=== PATIENT | female | born 1985 | race Caucasian/White ===

== ENCOUNTER 2021-08-06 11:28 | Emergency (ER) | payer OTHER, SELFPAY ==
[2021-08-06 11:36] VITALS: BP 131/89; PULSE 95; RESP 12; TEMP 36.6; O2SAT 100
--- NOTE | 2021-08-06 12:12 | ED.URI ---
HPI - URI/Sore Throat General Chief Complaint: Upper Respiratory Infection Stated Complaint: Sore throat, cough Time Seen by Provider: 08/06/21 12:12 Source: patient and RN notes reviewed Mode of arrival: ambulatory Limitations: no limitations History of Present Illness HPI Narrative: 36-year-old female with history of POTS presents with concern for sore throat, headache, sinus pressure, body aches and chills. Reports she is taken ibuprofen with no relief. She reports she is been vaccinated for Covid. She denies any known Covid exposure. Reports occasional cough, denies shortness of breath. MD elicited complaint: sore throat, nasal congestion and other Related Data Home Medications Medication Instructions Recorded Confirmed metoprolol succinate PO 08/06/21 Allergies Allergy/AdvReac Type Severity Reaction Status Date / Time No Known Allergies Allergy Verified 08/06/21 11:36 Review of Systems Review of Systems: CONSTITUTIONAL: Reported malaise, chills. Sweats, or fever. EYES: Denies visual changes, redness, or discharge. ENT: Reports rhinorrhea, congestion, sinus pain, and sore throat. CARDIOVASCULAR: Denies chest pain, palpitations, or edema. RESPIRATORY: Reports cough. Denies dyspnea. GASTROINTESTINAL: Denies abdominal pain, nausea, vomiting, diarrhea SKIN: Denies rash or itching. MUSCULOSKELETAL: Denies myalgia. NEUROLOGIC: Reports headache. All systems reviewed & are unremarkable except as noted in HPI and below PMFSH Family History Family History (Updated 09/12/16 @ 09:40 by DOCTOR UNKNOWN) Other Diabetes mellitus Family history of arthritis Family history of cardiovascular disease Family history of malignant neoplasm of ovary Family history of malignant neoplasm of thyroid Family history of mental disorder Family history of migraine headaches Family history of thyroid disease Hypertension Social History Social History Smoking status: Never smoker Alcohol intake: current Comments At time of signature, agree with nursing past medical, surgical, social and family history. There is no relevant family history pertinent to the presenting complaint Exam Narrative: GENERAL: Well-appearing, well-nourished, and in no acute distress. HEAD: Normocephalic EYES: PERRLA, conjunctivae clear ENT: Nares clear, clear discharge. Mucous membranes moist. TM pearly blevins with sharp light reflex bilaterally; no tragal tenderness. Oropharynx not erythematous without lesions. Tonsils not enlarged and without exudate, no drooling, no hoarseness, no trismus, uvula midline. NECK: Supple. No lymphadenopathy CHEST: Clear to auscultation, breath sounds equal. No wheezing, rhonchi, rales, or stridor. No respiratory distress, speaks in full sentences. HEART: Regular rate and rhythm. No murmur heard. SKIN: Warm, dry, no rash. NEURO: Alert and oriented x3. PSYCH: Normal mood and affect Course Course Emergency Course: Patient is aware of diagnosis, understands and agrees to treatment plan. Anticipatory guidance given. Patient agrees to follow-up as directed and is aware of reasons to seek care at the emergency department. Portions of this record may have been created with voice recognition software Level of Care: Express Care Visit Vital Signs Vital signs: Vital Signs Temperature 97.9 F 08/06/21 11:36 Pulse Rate 95 08/06/21 11:36 Respiratory Rate 12 08/06/21 11:36 Blood Pressure 131/89 08/06/21 11:36 Pulse Oximetry 100 08/06/21 11:36 Temperature 97.9 F 08/06/21 11:36 Pulse Rate 95 08/06/21 11:36 Respiratory Rate 12 08/06/21 11:36 Blood Pressure 131/89 08/06/21 11:36 Pulse Oximetry 100 08/06/21 11:36 Reviewed. MDM - URI/Sore Throat MDM Narrative Medical decision making narrative: Differential diagnosis considered: Mandujano virus, strep pharyngitis, allergic rhinitis, upper respiratory tract infection, sinusitis, rhinosinusitis, nasopharyngitis. viral pharyngitis, otit
== END 2021-08-06 12:35 | disposition home or self-care (01) ==
PROVIDERS: Emergency Provider Nurse Practitioner
DX: U07.1 COVID-19 (principal)
CPT/HCPCS: 87081; 87426; 87880; 99203; C9803; G0463

== ENCOUNTER → 2021-12-06 15:51 | Outpatient (CLI) | payer OTHER, SELFPAY ==
--- NOTE | ~2021-12-06 | XR_ITS ---
XR hand LT 2V DATE: 12/06/2021 16:23 INDICATION: Joint pain. Arthralgia. TECHNIQUE: AP and lateral views COMPARISON: None FINDINGS: No fracture, dislocation, periosteal reaction or bone destruction, erosive change or chondr ocalcinosis. IMPRESSION: No significant abnormality Reviewed, dictated and finalized at location A. IMPRESSION: No significant abnormality
--- NOTE | ~2021-12-06 | XR_ITS ---
XR foot RT 2V DATE: 12/06/2021 16:23 INDICATION: Arthralgia. Right foot pain. TECHNIQUE: AP and lateral views COMPARISON: None FINDINGS: No fracture or dislocation, periosteal reaction or bone destruction, erosive change or calc aneal enthesopathy. IMPRESSION: Negative Reviewed, dictated and finalized at location A. IMPRESSION: Negative
--- NOTE | ~2021-12-06 | XR_ITS ---
XR foot LT 2V DATE: 12/06/2021 16:23 INDICATION: Left foot pain. Arthralgia. TECHNIQUE: AP and lateral views COMPARISON: None FINDINGS: No fracture or dislocation, periosteal reaction or bone destruction, erosive change. No yuri caneal enthesopathy. IMPRESSION: No significant abnormality Reviewed, dictated and finalized at location A. IMPRESSION: No significant abnormality
--- NOTE | ~2021-12-06 | XR_ITS ---
XR hand RT 2V DATE: 12/06/2021 16:23 INDICATION: Arthralgia. Joint pain. TECHNIQUE: AP and lateral views COMPARISON: None FINDINGS: No fracture or dislocation, periosteal reaction or bone destruction, erosive change or kelly drocalcinosis. IMPRESSION: Negative Reviewed, dictated and finalized at location A. IMPRESSION: Negative
== END ==
PROVIDERS: Visit Provider Physician Assistant Medical
DX: M25.50 Pain in unspecified joint (principal)
CPT/HCPCS: 73120; 73620

== ENCOUNTER 2022-07-11 13:08 | Emergency (ER) | payer OTHER, SELFPAY ==
[2022-07-11 13:21] VITALS: BP 131/96; PULSE 109; RESP 16; TEMP 36.9; O2SAT 100
--- NOTE | 2022-07-11 13:25 | ED.GENADULT ---
HPI - General Adult General Chief complaint: Abdominal Pain Stated complaint: middle side back pain, nausea,chills Time Seen by Provider: 07/11/22 13:30 Source: patient, RN notes reviewed and old records reviewed Mode of arrival: ambulatory Limitations: no limitations History of Present Illness HPI narrative: 37-year-old female who presents to [facility] with complaints left flank pain which started yesterday. Patient report that pain to the left flank region is constant and is of varying degrees, non radiating to abdomen with some stated mild burning with urination. Patient reports some nausea but no vomiting or diarrhea, denies any fevers. Patient denies any history of kidney stones or any previous history of pyelonephritis. Patient has not taken any OTC medications for her discomfort. MD complaint: left flank discomfort with slight burning with urination, some nausea Onset (ago): day(s) (yesterday am) Severity scale (1-10): 5 Treatments prior to arrival: none Related Data Home Medications Medication Instructions Recorded Confirmed metoprolol succinate 25 mg 25 mg PO DAILY 08/06/21 07/11/22 tablet,extended release 24 hr Allergies Allergy/AdvReac Type Severity Reaction Status Date / Time No Known Allergies Allergy Verified 07/11/22 13:23 Review of Systems Review of Systems: CONSTITUTIONAL: Denies fever, chills, or sweats. CARDIOVASCULAR: Denies chest pain, palpitations, or edema. RESPIRATORY: Denies cough or dyspnea. GASTROINTESTINAL: Denies abdominal pain, reports some nausea, no vomiting, or diarrhea. GENITOURINARY: Reports mild burning with urination no frequency or urgency or visualized blood, report left flank pain. SKIN: Denies rash or itching MUSCULOSKELETAL: Denies lower back pain or myalgia. Reports left CVA tenderness NEUROLOGIC: Denies headache All systems reviewed & are unremarkable except as noted in HPI and below PMFSH Past Medical History Medical History Bloating Bloating Dyspepsia Irritable bowel syndrome POTS (postural orthostatic tachycardia syndrome) Family History Family History Other Diabetes mellitus Family history of arthritis Family history of cardiovascular disease Family history of malignant neoplasm of ovary Family history of malignant neoplasm of thyroid Family history of mental disorder Family history of migraine headaches Family history of thyroid disease Hypertension Social History Social History Smoking status: Never smoker Alcohol intake: current Comments At time of signature, agree with nursing past medical, surgical, social and family history. There is no relevant family history pertinent to the presenting complaint Exam Narrative: GENERAL: Well-appearing, well-nourished, and in no acute distress. HEAD: Normocephalic, atraumatic. NECK: Supple. lymphadenopathy CHEST: Clear to auscultation. No respiratory distress.SAO2 100% on room air HEART: Regular rate and rhythm. No murmur heard. Normal peripheral pulses. ABDOMEN: Soft, nontender, nondistended, normal active bowel sounds. Some left flank pain nonradiating. EXTREMITIES: Normal range of motion. No edema. SKIN: Warm, dry, no rash. NEURO: No focal deficits. Alert and oriented x3. Course Course Emergency Course: Patient is aware of diagnosis, understands and agrees to treatment plan.? Anticipatory guidance given.? Patient agrees to follow-up as directed and is aware of reasons to seek care at the emergency department. Portions of this record may have been created with voice recognition software Level of Care: Express Care Visit Vital Signs Vital signs: Vital Signs Temperature 36.9 C 07/11/22 13:21 Pulse Rate 109 H 07/11/22 13:21 Respiratory Rate 16 07/11/22 13:21 Blood Pressure 131/96 H 07/11/22 13:21 Pulse Oximetr
== END 2022-07-11 13:52 | disposition home or self-care (01) ==
PROVIDERS: Emergency Provider Registered Nurse; PCP Internal Medicine
DX: R10.9 Unspecified abdominal pain (principal); R11.0 Nausea
CPT/HCPCS: 81003; 99213; G0463

== ENCOUNTER → 2022-08-06 10:51 | Outpatient (CLI) | payer OTHER, SELFPAY ==
--- NOTE | ~2022-08-06 | CT_ITS ---
EXAMINATION: CT abdomen pelvis wo con DATE: 08/06/2022 11:16 INDICATION: Left flank pain. Microscopic hematuria. TECHNIQUE: Computed tomography (CT) of the abdomen and pelvis was performed without intravenous contr ast. Automated exposure control and iterative reconstruction technique were employed. Exam dose: 460 .73 mGy-cm total exam DLP. COMPARISON: None. FINDINGS: The lung bases are clear. Normal heart size. No pericardial or pleural effusion. The gallbladder is filled with numerous faceted gallstones. No gallbladder wall thickening or pericho lecystic fluid or fat stranding is detected. No hepatic, splenic, pancreatic, and adrenal or renal space-occupying mass lesion is detected. No bull e duct or pancreatic duct dilatation. No renal mass lesion is evident on this limited noncontrast examination. No urinary tract calculus or hydroureteronephrosis. The urinary bladder is unremarkable. Retroverted uterus. 3 cm right ovarian cyst. Normal caliber of the abdominal aorta. No intraperitoneal or retroperitoneal or pelvic mass lesion or adenopathy or ascites. Normal appendix. No bowel obstruction or intraperitoneal free air. Small fat-containing umbilical hernia. Included skeletal structures are unremarkable. IMPRESSION: 3 cm right ovarian cyst Retroverted uterus Cholelithiasis Normal appendix No urinary tract calculus or hydroureteronephrosis is detected Reviewed, dictated and finalized at Location [facility]. Reviewed, dictated and finalized at location B. 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
== END ==
PROVIDERS: PCP Internal Medicine; Visit Provider Internal Medicine
DX: N20.0 Calculus of kidney (principal); R10.9 Unspecified abdominal pain; N85.4 Malposition of uterus; K80.20 Calculus of gallbladder without cholecystitis without obstruction
CPT/HCPCS: 74176

== ENCOUNTER → 2022-08-07 08:24 | Outpatient (CLI) | payer OTHER, SELFPAY ==
--- NOTE | ~2022-08-07 | US_ITS ---
US abdomen complete DATE: 08/07/2022 09:05 INDICATION: Epigastric abdominal pain TECHNIQUE: Real-time and color flow imaging and Doppler analysis COMPARISON: 08/06/2022 CT abdomen pelvis FINDINGS: The pancreas is obscured by bowel gas but appeared unremarkable on 08/2022 CT abdomen pelvi s examination. No hepatic space-occupying mass lesion. Normal hepatopedal portal venous flow direction. There are multiple echogenic foci within the gallbladder, with shadowing, consistent with cholelithia sis. No gallbladder wall thickening or pericholecystic fluid. Negative sonographic Mendez's sign. The common bile duct measures 4.2 mm, normal. Normal caliber of the abdominal aorta. The inferior vena cava is unremarkable. Normal splenic size. Right kidney measures approximately 8.8 cm length, left kidney 10 cm. No renal mass lesion or hydrone phrosis is detected. IMPRESSION: Cholelithiasis; no gallbladder wall thickening, negative sonographic Mendez sign Reviewed, dictated and finalized at [facility]. Reviewed, dictated and finalized at location L. 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
== END ==
PROVIDERS: PCP Internal Medicine; Visit Provider Nurse Practitioner
DX: R10.13 Epigastric pain (principal); K58.9 Irritable bowel syndrome, unspecified; R00.2 Palpitations; R14.0 Abdominal distension (gaseous); K80.20 Calculus of gallbladder without cholecystitis without obstruction
CPT/HCPCS: 76700

== ENCOUNTER 2022-08-08 11:57 | Outpatient (CLI) | payer OTHER, SELFPAY ==
--- NOTE | ~2022-08-08 | NM_ITS ---
HEPATOBILIARY SCAN Procedure: Hepatobiliary scan performed following IV administration 4.8 mCi Tc 99m Choletec. At 60 m inutes a fatty meal was administered orally. Indication:Dyspepsia. History of gallstones. Comparison: Ultrasound dated 08/07/2022 Findings: There is normal radiotracer uptake in the liver parenchyma with prompt excretion into the b iliary tract. Gallbladder visualized at 50 minutes. Small bowel visualized at 10 minutes. Normal g allbladder ejection fraction measures 46% (normal 10-90%, but most patients with gallbladder dysfunct ion have GBEF of less than 35%) Impression: 1: Normal hepatobiliary scan. Reviewed, dictated and finalized at location A. 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
== END 2022-08-08 11:58 | disposition home or self-care (01) ==
PROVIDERS: PCP Internal Medicine; Visit Provider Nurse Practitioner
DX: K58.9 Irritable bowel syndrome, unspecified (principal); R00.2 Palpitations; R10.13 Epigastric pain; R14.0 Abdominal distension (gaseous)
CPT/HCPCS: 78226; A9537